=== PATIENT | female | born 1950 | race African-American/Black ===

== ENCOUNTER → 2016-07-28 | Outpatient (CLI) | payer OTHER ==
[2016-07-28 14:40] LABS: Basophils # (auto) 0 uL; Basophils % (auto) 0.5 % (0.0-2.0); Eosinophils # (auto) 0 uL; Eosinophils % (auto) 0.7 % (0.0-7.0); Hematocrit 45.8 % (36.0-46.0); Hemoglobin 14.7 g/dL (12.2-16.2); Lymphocytes # (auto) 1.3 uL; Lymphocytes % (auto) 51.2 % (10.0-50.0); Mean Corpuscular Hemoglobin 29.4 pg (28.0-32.0); Mean Corpuscular Hgb Conc. 32.1 g/dL (32.0-36.0); Mean Corpuscular Volume 91.8 fL (80.0-100.0); Mean Platelet Volume 9.3 fL (7.4-10.4); Monocytes # (auto) 0.2 uL; Monocytes % (auto) 6.2 % (0.0-12.0); Neutrophils # (auto) 1.1 uL; Neutrophils % (auto) 41.4 % (37.0-80.0); Platelet Count (auto) 224 10^3/uL (140-450); Red Cell Distribution Width 16.4 % (11.6-16.0); White Blood Cell 2.6 10^3/uL (4.4-10.8)
[2016-07-28 14:47] LABS: Urine Bilirubin Negative (Negative); Urine Blood Negative /uL (Negative); Urine Color Yellow (Yellow); Urine Glucose Normal (Normal); Urine Ketone Negative (Negative); Urine Nitrite Negative (Negative); Urine Urobilinogen Normal (Negative); Urine pH 6.5 (5.0-8.0)
[2016-07-28 14:56] LABS: Albumin 3.4 g/dL (3.4-5.0); BUN/Creatinine Ratio 11.9; Bilirubin, Direct 0.2 mg/dL (0-0.2); Bilirubin, Total 0.4 mg/dL (0.2-1.0); Calcium 10.6 mg/dL (8.5-10.1); Potassium 4.7 mmol/L (3.5-5.1); Total Protein 7.5 g/dL (6.4-8.2)
== END | disposition home or self-care (01) ==
LOC: LAB 08:40
PROVIDERS: ATTEND Internal Medicine Cardiovascular Disease
DX: I10 Essential (primary) hypertension (principal); E78.00 Pure hypercholesterolemia, unspecified; K74.1 Hepatic sclerosis; E11.9 Type 2 diabetes mellitus without complications; E03.9 Hypothyroidism, unspecified; D64.9 Anemia, unspecified; E55.9 Vitamin D deficiency, unspecified; N39.0 Urinary tract infection, site not specified
CPT/HCPCS: 36415; 80048; 80061; 80076; 81003; 82306; 83036; 84443; 85025

== ENCOUNTER → 2016-10-31 | Outpatient (CLI) | payer MEDICARE, OTHER ==
[~2016-10-31] VITALS: Ht 61 cm; Wt 112.5 kg
[~2016-10-31] MED LIST: IOHEXOL 350 MG/ML 100ML IJ ONE; diphenhdrAMINE HCL 50 MG/1 ML VL IV ONE; diphenhdrAMINE HCL 50 MG/1 ML VL ONE; methylPREDNISolone SOD SUCC 125 MG/2 ML VL IV ONE; methylPREDNISolone SOD SUCC 40 MG/ML VL ONE
[2016-10-31 11:00] VITALS: BP 135/84
[2016-10-31 12:00] VITALS: BP 126/79
== END | disposition home or self-care (01) ==
LOC: Rad HDHVI 10:47
PROVIDERS: ATTEND Internal Medicine Cardiovascular Disease
DX: G45.9 Transient cerebral ischemic attack, unspecified (principal); K76.89 Other specified diseases of liver; N28.1 Cyst of kidney, acquired
CPT/HCPCS: 70460; 70491; 71260; 96374; 96375; G0463; J1200; J2920; Q9967

== ENCOUNTER → 2017-01-28 | Outpatient (CLI) | payer MEDICARE, OTHER ==
[2017-01-28 12:34] LABS: Basophils # (auto) 0 uL; Basophils % (auto) 0.3 % (0.0-2.0); CONDITION Y; Eosinophils # (auto) 0 uL; Eosinophils % (auto) 0.8 % (0.0-7.0); Hematocrit 42.3 % (36.0-46.0); Lymphocytes # (auto) 1.5 uL; Mean Corpuscular Hemoglobin 32.2 pg (28.0-32.0); Mean Corpuscular Volume 97.4 fL (80.0-100.0); Mean Platelet Volume 9.4 fL (7.4-10.4); Monocytes # (auto) 0.3 uL; Neutrophils # (auto) 2.1 uL; Neutrophils % (auto) 53.9 % (37.0-80.0); Platelet Count (auto) 208 10^3/uL (140-450); Red Cell Distribution Width 14.5 % (11.6-16.0); White Blood Cell 3.9 10^3/uL (4.4-10.8)
== END | disposition home or self-care (01) ==
LOC: LAB 09:01
PROVIDERS: ATTEND Internal Medicine Cardiovascular Disease
DX: D64.9 Anemia, unspecified (principal)
CPT/HCPCS: 36415; 85025

== ENCOUNTER → 2017-12-09 | Outpatient (CLI) | payer MEDICARE, OTHER ==
[2017-12-09 12:10] LABS: Basophils # (auto) 0 uL; Basophils % (auto) 0.3 % (0.0-2.0); Eosinophils # (auto) 0 uL; Eosinophils % (auto) 0.5 % (0.0-7.0); Hematocrit 40.7 % (36.0-46.0); Hemoglobin 13.6 g/dL (12.2-16.2); Lymphocytes # (auto) 1.6 uL; Lymphocytes % (auto) 39.4 % (10.0-50.0); Mean Corpuscular Hemoglobin 31.7 pg (28.0-32.0); Mean Corpuscular Hgb Conc. 33.3 g/dL (32.0-36.0); Mean Corpuscular Volume 95.4 fL (80.0-100.0); Monocytes # (auto) 0.3 uL; Monocytes % (auto) 6.5 % (0.0-12.0); Neutrophils # (auto) 2.1 uL; Neutrophils % (auto) 53.3 % (37.0-80.0); Nucleated Red Blood Cells % 0.1 %; Platelet Count (auto) 165 10^3/uL (140-450); Red Blood Cells 4.27 10^6/uL (4.0-5.20); Red Cell Distribution Width 14.4 % (11.8-14.3)
[2017-12-09 12:39] LABS: Alanine Aminotransferase 21 U/L (13-56); Albumin 3.2 g/dL (3.4-5.0); Alkaline Phosphatase 95 U/L (45-117); Anion Gap 4 (5-15); Aspartate Aminotransferase 16 U/L (15-37); Bilirubin, Direct < 0.1 mg/dL (0-0.2); Bilirubin, Total 0.2 mg/dL (0.2-1.0); Blood Urea Nitrogen 11 mg/dL (7-18); Calcium 9.9 mg/dL (8.5-10.1); Carbon Dioxide 29 mmol/L (21-32); Chloride 108 mmol/L (98-107); Cholesterol 157 mg/dL (< 200); GFR African American 79 mL/min; GFR Non-African American 65 mL/min; Glucose 89 mg/dL (74-106); HDL Cholesterol 61 mg/dL (40-59); LDL Cholesterol 90 mg/dL (< 100); Potassium 4.9 mmol/L (3.5-5.1); Sodium 141 mmol/L (136-145); Total Protein 7.3 g/dL (6.4-8.2); Triglycerides 122 mg/dL (< 150)
== END | disposition home or self-care (01) ==
LOC: LAB 10:27
PROVIDERS: ATTEND Internal Medicine Cardiovascular Disease
DX: Z00.01 Encounter for general adult medical examination with abnormal findings (principal); E03.9 Hypothyroidism, unspecified; E55.9 Vitamin D deficiency, unspecified; E11.9 Type 2 diabetes mellitus without complications; I10 Essential (primary) hypertension
CPT/HCPCS: 36415; 80048; 80061; 80076; 82306; 83036; 84443; 85025

== ENCOUNTER → 2019-09-05 | Outpatient (CLI) | payer MEDICARE, OTHER ==
[2019-09-05 12:51] LABS: Urine Blood Negative /uL (Negative); Urine Specific Gravity 1.015 (1.001-1.035)
== END | disposition home or self-care (01) ==
LOC: LAB 09:25
PROVIDERS: ATTEND Internal Medicine Cardiovascular Disease
DX: N39.0 Urinary tract infection, site not specified (principal)
CPT/HCPCS: 81003; 87086

== ENCOUNTER → 2020-05-16 | Outpatient (CLI) | payer MEDICARE, OTHER | END | disposition home or self-care (01) | LOC: Rad HDHVI 12:57 | PROVIDERS: ATTEND Internal Medicine Cardiovascular Disease | DX: I10 Essential (primary) hypertension (principal); R06.02 Shortness of breath; E66.9 Obesity, unspecified; E78.5 Hyperlipidemia, unspecified; Z82.49 Family history of ischemic heart disease and other diseases of the circulatory system | CPT/HCPCS: 78452; 93017; 96374; A9500 ==

== ENCOUNTER → 2020-05-21 | Outpatient (CLI) | payer MEDICARE, OTHER | END | disposition home or self-care (01) | LOC: Rad HDHVI 12:58 | PROVIDERS: ATTEND Internal Medicine Cardiovascular Disease | DX: I47.1 Supraventricular tachycardia (principal); R00.2 Palpitations | CPT/HCPCS: 93306 ==

== ENCOUNTER → 2021-01-16 | Outpatient (CLI) | payer MEDICARE, OTHER ==
[2021-01-16 12:09] LABS: Basophils # (auto) 0 10 ^3/uL (0-0.2); Basophils % (auto) 0.8 % (0.0-2.0); Eosinophils # (auto) 0.1 10 ^3/uL (0-0.8); Eosinophils % (auto) 1.8 % (0.0-7.0); Hematocrit 40.8 % (36.0-46.0); Hemoglobin 14.1 g/dL (12.2-16.2); Lymphocytes # (auto) 1.3 10 ^3/uL (0.4-5.4); Lymphocytes % (auto) 34.2 % (10.0-50.0); Mean Corpuscular Hemoglobin 31.3 pg (28.0-32.0); Mean Corpuscular Hgb Conc. 34.4 g/dL (32.0-36.0); Monocytes # (auto) 0.5 10 ^3/uL (0-1.3); Monocytes % (auto) 12.3 % (0.0-12.0); Neutrophils % (auto) 50.9 % (37.0-80.0); Platelet Count (auto) 176 10^3/uL (140-450); Red Blood Cells 4.49 10^6/uL (4.0-5.20); Red Cell Distribution Width 14.4 % (11.8-14.3); White Blood Cell 3.9 10^3/uL (4.4-10.8)
[2021-01-16 12:11] LABS: Urine Blood Negative /uL (Negative); Urine Specific Gravity 1.014 (1.001-1.035)
[2021-01-16 12:15] LABS: Albumin 3.2 g/dL (3.4-5.0); Calcium 9.7 mg/dL (8.5-10.1); Potassium 4.6 mmol/L (3.5-5.1)
[2021-01-16 12:21] LABS: BUN/Creatinine Ratio 11.2; Bilirubin, Total 0.4 mg/dL (0.2-1.0); Total Protein 7.2 g/dL (6.4-8.2)
[2021-01-16 12:27] LABS: Free T4 (Free Thyroxine) 1.05 ng/dL (0.89-1.76)
== END | disposition home or self-care (01) ==
LOC: LAB 11:01
PROVIDERS: ATTEND Internal Medicine Cardiovascular Disease
DX: D51.3 Other dietary vitamin B12 deficiency anemia (principal); I10 Essential (primary) hypertension; E11.9 Type 2 diabetes mellitus without complications; E55.9 Vitamin D deficiency, unspecified; D64.9 Anemia, unspecified; R00.2 Palpitations; R53.1 Weakness; R30.0 Dysuria
CPT/HCPCS: 36415; 80053; 80061; 81003; 82306; 82607; 83036; 84439; 84443; 85025; 85049

== ENCOUNTER → 2021-06-18 | Outpatient (CLI) | payer MEDICARE, OTHER | END | disposition home or self-care (01) | LOC: Rad HDHVI 09:57 | PROVIDERS: ATTEND Internal Medicine Cardiovascular Disease | DX: I35.0 Nonrheumatic aortic (valve) stenosis (principal); I05.0 Rheumatic mitral stenosis | CPT/HCPCS: 93306 ==

== ENCOUNTER → 2021-06-25 | Outpatient (CLI) | payer MEDICARE, OTHER ==
[~2021-06-25] VITALS: Ht 160 cm; Wt 112.9 kg
== END | disposition home or self-care (01) ==
LOC: Rad HDHVI 09:21
PROVIDERS: ATTEND Internal Medicine Cardiovascular Disease
DX: I10 Essential (primary) hypertension (principal); E78.5 Hyperlipidemia, unspecified; G47.30 Sleep apnea, unspecified; Z82.49 Family history of ischemic heart disease and other diseases of the circulatory system; E11.9 Type 2 diabetes mellitus without complications
CPT/HCPCS: 78452; 93017; 96374; A9500

== ENCOUNTER → 2021-08-30 | Day surgery (SDC) | payer MEDICARE, OTHER ==
[2021-08-28 07:41] LABS: Basophils # (auto) 0 10 ^3/uL (0-0.2); Basophils % (auto) 0.7 % (0.0-2.0); Eosinophils # (auto) 0.1 10 ^3/uL (0-0.8); Eosinophils % (auto) 2.1 % (0.0-7.0); Hematocrit 40.7 % (36.0-46.0); Hemoglobin 13.1 g/dL (12.2-16.2); Lymphocytes # (auto) 1.4 10 ^3/uL (0.4-5.4); Lymphocytes % (auto) 37.5 % (10.0-50.0); Mean Corpuscular Hemoglobin 29.2 pg (28.0-32.0); Mean Corpuscular Hgb Conc. 32.1 g/dL (32.0-36.0); Mean Corpuscular Volume 90.9 fL (80.0-100.0); Monocytes # (auto) 0.4 10 ^3/uL (0-1.3); Monocytes % (auto) 9.7 % (0.0-12.0); Neutrophils # (auto) 1.8 10 ^3/uL (1.6-8.6); Nucleated Red Blood Cells % 0.1 %; Red Blood Cells 4.47 10^6/uL (4.0-5.20); Red Cell Distribution Width 14.2 % (11.8-14.3); White Blood Cell 3.7 10^3/uL (4.4-10.8)
[2021-08-28 07:58] LABS: INR 0.94 (0.9-1.15); Partial Thromboplastin Time 30.8 sec (23.6-33.0)
[2021-08-28 07:59] LABS: Calcium 9.8 mg/dL (8.5-10.1); Potassium 4.2 mmol/L (3.5-5.1)
[2021-08-28 08:06] LABS: Albumin 3.2 g/dL (3.4-5.0); BUN/Creatinine Ratio 11.1; Bilirubin, Total 0.5 mg/dL (0.2-1.0)
[~2021-08-30] VITALS: Ht 160 cm; Wt 111.6 kg
[~2021-08-30] MED LIST changes: +HYDR-4902 PO; +HYDROmorphone HCL 2 MG/ML VL IV PRN; -IOHEXOL 350 MG/ML 100ML IJ ONE; +LACTATED RINGER'S 1,000 ML IV SCH; +LEFL20TA PO; +LISI2.5T47 PO; +MERC50TA PO; +METOCLOPRAMIDE HCL 5MG/ml INJ 2ml VIAL IV PRN; +MIDAZOLAM HCL 2MG/2ML 2ml VIAL (1mg/ml) ONE; +MORPHINE SULFATE 4 MG/ML SYR/VIAL IV PRN; +ONDA-144 PO; +ONDANSETRON HCL 4 MG/2 ML VIAL IV PRN; +ONDANSETRON HCL 4 MG/2 ML VIAL ONE; +PROPOFOL 10 MG/ML 20 ML IV ONE; +SODIUM CHLORIDE LOCK 10 ML ONE; +ceFAZolin 1GM/50ML 50 ML IV ONE; -diphenhdrAMINE HCL 50 MG/1 ML VL IV ONE; -diphenhdrAMINE HCL 50 MG/1 ML VL ONE; +fentaNYL CITRATE 100 MCG/2 ML VL ONE; -methylPREDNISolone SOD SUCC 125 MG/2 ML VL IV ONE; -methylPREDNISolone SOD SUCC 40 MG/ML VL ONE
[2021-08-30 10:05] VITALS: BP 134/88
== END | disposition home or self-care (01) ==
LOC: SUR 06:54
PROVIDERS: ATTEND Obstetrics & Gynecology
DX: N85.00 Endometrial hyperplasia, unspecified (principal); M19.90 Unspecified osteoarthritis, unspecified site; I10 Essential (primary) hypertension; G89.29 Other chronic pain; E66.01 Morbid (severe) obesity due to excess calories; G47.33 Obstructive sleep apnea (adult) (pediatric); M06.9 Rheumatoid arthritis, unspecified; Z98.890 Other specified postprocedural states; Z98.51 Tubal ligation status; Z87.891 Personal history of nicotine dependence; Z79.899 Other long term (current) drug therapy; Z82.49 Family history of ischemic heart disease and other diseases of the circulatory system; Z20.822 Contact with and (suspected) exposure to COVID-19; Z68.41 Body mass index [BMI] 40.0-44.9, adult
CPT/HCPCS: 36415; 58558; 80053; 81025; 84702; 85025; 85610; 85730; 86850; 86900; 86901; 87086; J0690; J2250; J2405; J2704; J3010; U0003

== ENCOUNTER → 2021-12-04 | Outpatient (CLI) | payer MEDICARE, OTHER ==
[~2021-12-04] MED LIST changes: -HYDROmorphone HCL 2 MG/ML VL IV PRN; -LACTATED RINGER'S 1,000 ML IV SCH; -METOCLOPRAMIDE HCL 5MG/ml INJ 2ml VIAL IV PRN; -MIDAZOLAM HCL 2MG/2ML 2ml VIAL (1mg/ml) ONE; -MORPHINE SULFATE 4 MG/ML SYR/VIAL IV PRN; -ONDANSETRON HCL 4 MG/2 ML VIAL IV PRN; -ONDANSETRON HCL 4 MG/2 ML VIAL ONE; -PROPOFOL 10 MG/ML 20 ML IV ONE; -SODIUM CHLORIDE LOCK 10 ML ONE; -ceFAZolin 1GM/50ML 50 ML IV ONE; -fentaNYL CITRATE 100 MCG/2 ML VL ONE
[2021-12-04 11:53] LABS: Basophils # (auto) 0 10 ^3/uL (0-0.2); Basophils % (auto) 0.8 % (0.0-2.0); Eosinophils # (auto) 0.1 10 ^3/uL (0-0.8); Hematocrit 40.1 % (36.0-46.0); Hemoglobin 13.1 g/dL (12.2-16.2); Lymphocytes # (auto) 1.1 10 ^3/uL (0.4-5.4); Lymphocytes % (auto) 31.5 % (10.0-50.0); Mean Corpuscular Hemoglobin 29.2 pg (28.0-32.0); Mean Corpuscular Hgb Conc. 32.6 g/dL (32.0-36.0); Mean Corpuscular Volume 89.6 fL (80.0-100.0); Monocytes # (auto) 0.3 10 ^3/uL (0-1.3); Monocytes % (auto) 9.9 % (0.0-12.0); Neutrophils # (auto) 1.9 10 ^3/uL (1.6-8.6); Neutrophils % (auto) 55.8 % (37.0-80.0); Nucleated Red Blood Cells % 0.1 %; Red Blood Cells 4.48 10^6/uL (4.0-5.20); Red Cell Distribution Width 15.2 % (11.8-14.3); White Blood Cell 3.5 10^3/uL (4.4-10.8)
[2021-12-04 11:54] LABS: Free T4 (Free Thyroxine) 0.97 ng/dL (0.89-1.76)
[2021-12-04 12:11] LABS: Urine Blood Negative /uL (Negative); Urine Specific Gravity 1.016 (1.001-1.035)
[2021-12-04 12:39] LABS: Potassium 4.4 mmol/L (3.5-5.1)
[2021-12-04 12:51] LABS: Albumin 3.1 g/dL (3.4-5.0); BUN/Creatinine Ratio 12.8; Bilirubin, Total 0.5 mg/dL (0.2-1.0); Calcium 9.7 mg/dL (8.5-10.1); Total Protein 7.1 g/dL (6.4-8.2)
== END | disposition home or self-care (01) ==
LOC: LAB 07:53
PROVIDERS: ATTEND Internal Medicine Cardiovascular Disease
DX: D51.3 Other dietary vitamin B12 deficiency anemia (principal); D64.9 Anemia, unspecified; E11.9 Type 2 diabetes mellitus without complications; E55.9 Vitamin D deficiency, unspecified; I10 Essential (primary) hypertension; R00.2 Palpitations; R53.1 Weakness; R30.0 Dysuria
CPT/HCPCS: 36415; 80053; 80061; 81003; 82306; 82607; 83036; 84439; 84443; 85025; 87086; 87088; 87186

== ENCOUNTER → 2022-11-11 | Outpatient (CLI) | payer MEDICARE, OTHER | END | disposition home or self-care (01) | LOC: Rad HDHVI 08:50 | PROVIDERS: ATTEND Internal Medicine Cardiovascular Disease | DX: I34.0 Nonrheumatic mitral (valve) insufficiency (principal); R07.89 Other chest pain; I10 Essential (primary) hypertension | CPT/HCPCS: 93306 ==

== ENCOUNTER → 2022-11-19 | Outpatient (CLI) | payer MEDICARE, OTHER | END | disposition home or self-care (01) | LOC: Rad HDHVI 08:04 | PROVIDERS: ATTEND Internal Medicine Cardiovascular Disease | DX: R60.9 Edema, unspecified (principal) | CPT/HCPCS: 93926 ==

== ENCOUNTER → 2022-12-01 | Outpatient (CLI) | payer MEDICARE, OTHER ==
[~2022-12-01] VITALS: Ht 160 cm; Wt 102.1 kg
== END | disposition home or self-care (01) ==
LOC: Rad HDHVI 09:08
PROVIDERS: ATTEND Internal Medicine Cardiovascular Disease
DX: R06.02 Shortness of breath (principal); I10 Essential (primary) hypertension; E78.5 Hyperlipidemia, unspecified; Z82.49 Family history of ischemic heart disease and other diseases of the circulatory system
CPT/HCPCS: 78452; 93017; 96374; A9500

== ENCOUNTER 2024-09-09 07:59 | Emergency (ER) | payer MEDICARE, OTHER ==
[~2024-09-09] VITALS: Ht 160 cm; Wt 104.4 kg
[2024-09-09 08:23] VITALS: BP 169/97; PULSE 110; RESP 18; TEMP 98.3; O2SAT 98
--- NOTE | 2024-09-09 08:36 | ED.PDOC ---
Back pain HPI HPI Comments A 73 YEAR OLD FEMALE PRESENTS TO THE ED WITH COMPLAINT OF LOWER BACK PAIN AND LEFT HIP PAIN. PATIENT STATES SHE HAS A HISTORY OF CHRONIC LOWER BACK PAIN AND HAS BEEN EXPERIENCING OCCASIONAL LOWER BACK PAIN WITH LEFT HIP PAIN THAT RADIATES DOWN TO HER LEFT CALF OFF AND ON FOR THE PAST 2 WEEKS WITH WORSENING SYMPTOMS OVER THE LAST 1 WEEK. PATIENT DENIES SADDLE ANESTHESIA, URINARY INCONTINENCE, BOWEL INCONTINENCE, FEVER, CHILLS, SHORTNESS OF BREATH, CHEST PAIN, ABDOMINAL PAIN, NAUSEA, VOMITING, HEADACHE, OR OTHER COMPLAINTS. NO OTHER SYMPTOMS OR MODIFYING FACTORS AT THIS TIME. PATIENT IS ALERT, ORIENTED X 4, AND HAS STEADY GAIT. Chief Complaint: Lower Extremity Time Seen by MD: 08:13 Reviewed Notes: Nurses Notes, Medications, Allergies Allergies: Coded Allergies: Iodine (Verified Allergy, Unknown, 05/16/20) Home Meds Active Scripts Tramadol Hcl (Tramadol Hcl) 50 Mg Tab, 50 MG PO BID, #20 TAB Prov:LORENA LEYVA 09/09/24 Prednisone (Prednisone) 20 Mg Tab, 40 MG PO DAILY, #20 TAB Prov:LORENA LEYVA 09/09/24 Ondansetron (Zofran) 4 Mg Tab, 4 MG PO Q4HPRN PRN, #30 TAB Prov:ROSALIND EMERSON DO 08/30/21 Hydrocodone-Acetaminophen (Hydrocodone Bitartrate/AC 5-325 mg) 1 Tab Tab, 1 TAB PO Q6HPRN PRN for 5 Days, #20 TAB Prov:ROSALIND EMERSON 08/30/21 Reported Medications Leflunomide (Arava) 20 Mg Tab, 20 MG PO, TAB 08/27/21 Lisinopril (Lisinopril) 2.5 Mg Tab, 2.5 MG PO, TAB 08/27/21 Mercaptopurine (Mercaptopurine) 50 Mg Tab, 50 MG PO, TAB 08/27/21 Information Source: Patient Mode of Arrival: Ambulatory Timing: Weeks Duration: Intermittent Location of Back pain: (B) Lumbar Radiates to: Anterior: (L) Buttocks (\), (L) Calf, (L) Thigh Radiates to: Posterior: (L) Buttocks, (L) Calf, (L) Thigh Radiates to: Medial: (L) Buttocks, (L) Calf, (L) Thigh Radiates to: Lateral: (L) Buttocks, (L) Calf, (L) Thigh Severity: Moderate Quality: Aching, Burning, Cramping Onset: Spontaneous History of: Chronic Back Pain Modifying Factors: Movement Associated signs and symptoms: None Past Medical History PAST MEDICAL HISTORY: Arthritis, HTN Past Medical History (Other): DDD OF LOW BACK Surgical History: Denies all surgeries 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 Family History Family History: Reviewed,noncontributory to illness Social History Smoker: Non-Smoker Alcohol: Denies ETOH Use Drugs: Denies Drug Use Lives In: Home Constitutional: denies: chills, diaphoresis, fatigue, fever, malaise, sweats, weakness, others EENTM: denies: blurred vision, double vision, ear bleeding, ear discharge, ear drainage, ear pain, ear ringing, eye pain, eye redness, hearing loss, mouth pain, mouth swelling, nasal discharge, nose bleeding, nose congestion, nose pain, photophobia, tearing, throat pain, throat swelling, voice changes, others Respiratory: denies: cough, hemoptysis, orthopnea, SOB at rest, shortness of breath, SOB with excertion, stridor, wheezing, others Cardiovascular: denies: chest pain, dizzy spells, diaphoresis, Dyspnea on exertion, edema, irregular heart beat, left arm pain, lightheadedness, palpitations, PND, syncope, others Gastrointestinal: denies: abdomen distended, abdominal pain, blood streaked bowels, constipated, diarrhea, dysphagia, difficulty swallowing, hematemesis, melena, nausea, poor appetite, poor fluid intake, rectal bleeding, rectal pain, vomiting, others Genitourinary: denies: abnormal vagina bleeding, burning, dyspareunia, dysuria, flank pain, frequency, hematuria, incontinence, pain, , vagina discharge, urgency, others Neurological: denies: dizziness, fainting, headache, left sided numbness, left sided weakness, numbness, paresthesia, pre-existing deficit, right sided numbness, right sided weakness, seizure, speech problems, tingling, tremors, weakness, others Musculoskeletal: reports: back pain (LOWER BACK PAIN), joint pain, muscle pain, others (LEFT HIP PAIN); denies: gout, joint swelling, muscle stiffness, neck pain Integumetry: denies: bruises, change in color, change in hair/nails, dryness, laceration, lesions, lumps, rash, wounds, others Allergic/Immunocompromised: denies: Difficulty Healing, Frequent Infections, Hives, Itching, others Hematologic/Lymphatic: denies: anemia, blood clots, easy bleeding, easy bruising, swollen glands, others Endocrine: denies: excessive hunger, excessive sweating, excessive thirst, excessive urination, flushing, intolerance to cold, intolerance to heat, unexplained weight gain, unexplained weight loss, others Psychiatric: denies: anxiety, bipolar disorder, depression, hopeless, panic disorder, schizophrenia, sleepless, suicidal, others All Other Systems: Reviewed and Negative Physical Exam General Appearance: No Apparent Distress, Obese HEENT: Normal ENT Inspection, PERRL/EOMI, Pharynx Normal, TMs Normal Neck: Full Range of Motion, Non-Tender, Normal, Normal Inspection Respiratory: Chest Non-Tender, Lungs Clear, No Accessory Muscle Use, No Respiratory Distress, Normal Breath Sounds Cardiovascular: No Edema, No JVD, No Murmur, No Gallop, Normal Peripheral Pulses, Regular Rate/Rhythm Breast Exam: Deferred Gastrointestinal: No Organomegaly, Non Tender, No Pulsatile Mass, Normal Bowel Sounds, Soft Genitalia: Deferred Pelvic: Deferred Rectal: Deferred Extremities: No calf tenderness, Normal capillary refill, Normal range of motion, No pedal edema, Tender (LEFT LATERAL HIP, NO REDNESS, SWELLING AND DVT SIGNS OF LEFT LOWER EXTREMITY. ) Musculoskeletal : Location: Bilateral Extremity Location: Back Apperance: Tenderness (AND MUSCLE SPASM ON LOWER BACK, NO BONY TENDERNESS, SWELLING AND DEFORMITY. ) Neurologic: Alert, cigarette tester II-XII nml as Tested, No Motor Deficits, Normal Affect, Normal Mood, No Sensory Deficits Cerebellar Function: Normal Reflexes: Normal Skin: Dry, Normal Color, Warm Peripheral Pulses: 2+ carotid (R), 2+ carotid (L), 2+ dorsalis pedis (R), 2+ dorsalis pedis (L) Lymphatic: No Adenopathy Was a procedure done? Was a procedure done?: No Back Pain Differential Dx Differential Diagnosis: DJD, Musculoskeletal Pain, Strain Other Differential Diagnosis DDD, LUMBAR RADICULOPATHY X-Ray, Labs, Meds, VS Vital Signs Date Time Temp Pulse Resp B/P (MAP) Pulse Ox O2 Delivery O2 Flow Rate FiO2 2/21/25 08:23 98.3 110 18 169/97 (121) 98 98.3 09/09/24 08:23 110 18 98 Room Air 09/09/24 08:12 98.3 110 18 171/103 (125) 98 XY L HIP COMPLETE XRAY, INDICATION: PAIN, NO INJURY TECHNICAL DATA: Frontal and frog lateral views were obtained of the left hip.] COMPARISON: None FINDINGS: The left hip is normally located. The left hip joint is normally maintained with no marginal osteophytes. No left hip fracture is identified. The left sacroiliac joint appears normal. IMPRESSION: No fracture of the left hip. ATED BY: SERGIO YING MD DICTATED DATE/TIME: 09/09/24853 SIGNED BY: SERGIO YING MD SIGNED DATE/TIME: 09/09/24853 CC: XY LUMBAR SPINE 3 VIEW, HISTORY: PAIN, NO INJURY COMPARISON: None TECHNICAL DATA: Frontal and lateral views were obtained of the lumbar spine . FINDINGS: There are 5 lumbar type vertebral bodies. Lumbar curvature is within normal limits. Mild to moderate anterolisthesis of L4-5. Vertebral body heights are maintained. Disk heights are narrow and degenerative. The facet joints appear degenerative. The sacroiliac joints are symmetric. Paraspinal soft tissues are within normal limits. IMPRESSION: Mild to moderate anterolisthesis of L3-4, L4-5. No acute fracture or dislocation of the lumbar spine. ATED BY: SERGIO YING MD DICTATED DATE/TIME: 09/09/24852 SIGNED BY: SERGIO YING MD SIGNED DATE/TIME: 09/09/24852 CC: X-Ray, Labs, Meds, VS Comment EXTERNAL MEDICAL RECORDS REVIEWED: [NONE] INDEPENDENT HISTORIANS: [NONE] SOCIAL DETERMINANTS OF HEALTH: [NONE] LABS ORDERED: NONE REVIEWED AND INTERPRETED RESULTS: NONE IMAGING ORDERED: XR L-SPINE, XR HIP LT TREATMENTS ORDERED: NONE PROCEDURES PERFORMED: NONE CRITICAL CARE TIME: NONE I HAVE DISCUSSED THE PATIENT WITH THE ATTENDING PHYSICIAN DR. ALARCON AND HE AGREES WITH THE PATIENT'S PLAN OF CARE AND DISPOSITION. BASED ON HISTORY OF PRESENT ILLNESS, AND PHYSICAL EXAM, PATIENT WILL BE DISCHARGED HOME. SHARED DECISION MAKING: PATIENT INSTRUCTED TO FOLLOW UP WITH PRIMARY CARE PROVIDER IN 1-2 DAYS FOR RE-EVALUATION OF SYMPTOMS. PATIENT VERBALIZES UNDERSTANDING TO RETURN TO ED FOR NEW OR WORSENING SYMPTOMS OR IF FOLLOW UP WITH PCP CANNOT BE OBTAINED. PATIENT FEELS COMFORTABLE GOING HOME AT THIS TIME. ALL QUESTIONS ADDRESSED AT TIME OF DISCHARGE. Images Reviewed?: Images reviewed and evaluated by me Time of 1ST Reevaluation: 09:18 Reevaluation 1ST: Improved Patient Education/Counseling: Diagnosis, Treatment, Need For Follow Up Family Education/Counseling: Diagnosis, Treatment, Need For Follow Up Medical Screening: No EMC Exist At This Time Departure 1 Departure Time of Disposition: :18 Impression: Primary Impression: DDD (degenerative disc disease), lumbar Qualified Codes: M51.362 - Other intervertebral disc degeneration, lumbar region with discogenic back pain and lower extremity pain Additional Impression: Lumbar radiculopathy Disposition: HOME / SELF CARE / HOMELESS Condition: Stable Additional Instructions: FOLLOW-UP WITH PCP IN 1 TO 2 DAYS. TAKE MEDICATIONS PRESCRIBED. RETURN TO ED FOR ANY NEW OR WORSENING SYMPTOMS. e-Prescriptions Tramadol Hcl (Tramadol Hcl) 50 Mg Tab 50 MG PO BID, #20 TAB Prov: LORENA LEYVA 09/09/24 Prednisone (Prednisone) 20 Mg Tab 40 MG PO DAILY, #20 TAB Prov: LORENA LEYVA 09/09/24 Discharged With: Self Critical Care Note Critical Care Time?: No Stability Stability form required: No I personally scribed for LORENA LEYVA ([email or web address]) on 09/09/24 at 08:36. Elec tronically submitted by Enrico Plata ([email or web address]). I personally scribed for LORENA LEYVA ([email or web address]) on 09/09/24 at 09:01. Elect ronically submitted by Enrico Plata ([email or web address]). I personally scribed for LORENA LEYVA ([email or web address]) on 09/09/24 at 09:02. Electr onically submitted by Enrico Plata ([email or web address]). LORENA LEYVA Sep 09, 2024 08:36
--- NOTE | 2024-09-09 08:56 | DVH ---
XY L HIP COMPLETE XRAY, INDICATION: PAIN, NO INJURY TECHNICAL DATA: Frontal and frog lateral views were obtained of the left hip.] COMPARISON: None FINDINGS: The left hip is normally located. The left hip joint is normally maintained with no marginal osteophy henrry. No left hip fracture is identified. The left sacroiliac joint appears normal. IMPRESSION: No fracture of the left hip.
--- NOTE | 2024-09-09 08:56 | DVH ---
XY LUMBAR SPINE 3 VIEW, HISTORY: PAIN, NO INJURY COMPARISON: None TECHNICAL DATA: Frontal and lateral views were obtained of the lumbar spine . FINDINGS: There are 5 lumbar type vertebral bodies. Lumbar curvature is within normal limits. Mild to moderate anterolisthesis of L4-5. Vertebral body heights are maintained. Disk heights are narrow and degenerat steven. The facet joints appear degenerative. The sacroiliac joints are symmetric. Paraspinal soft tissu es are within normal limits. IMPRESSION: Mild to moderate anterolisthesis of L3-4, L4-5. No acute fracture or dislocation of the lumbar spine.
[2024-09-09] MEDS ORDERED: PRED20TA2 PO (09:15)
[2024-09-09] MEDS ORDERED: TRAM50TA2 PO (09:15)
== END 2024-09-09 09:21 | disposition home or self-care (01) ==
LOC: ER 07:59
DX: M51.369 Other intervertebral disc degeneration, lumbar region without mention of lumbar back pain or lower extremity pain (principal); M54.16 Radiculopathy, lumbar region; I10 Essential (primary) hypertension; Z79.52 Long term (current) use of systemic steroids; Z88.8 Allergy status to other drugs, medicaments and biological substances; Z79.899 Other long term (current) drug therapy
CPT/HCPCS: 72100; 73502

== ENCOUNTER 2024-10-15 08:39 | Emergency (ER) | payer MEDICARE, OTHER ==
[~2024-10-15] VITALS: Ht 160 cm; Wt 90.9 kg
[~2024-10-15 08:39] MED LIST changes: +PRED20TA2 PO; +TRAM50TA2 PO
[2024-10-15 08:54] VITALS: BP 159/95; PULSE 90; RESP 20; TEMP 98.3; O2SAT 97
--- NOTE | 2024-10-15 09:09 | ED.PDOC ---
History of Present Illness HPI Comments A 73 YEAR OLD FEMALE BROUGHT IN BY AMBULANCE PRESENTS TO THE ED WITH COMPLAINT OF CHRONIC LOWER BACK PAIN THAT RADIATES TO LEFT HIP AND PAIN MANAGEMENT. PATIENT STATES SHE HAS A HISTORY OF CHRONIC LOWER BACK PAIN THAT RADIATES TO HER LEFT HIP AND HAS BEEN EXPERIENCING WORSE PAIN OFF AND ON FOR THE PAST 1 MONTH. PATIENT WAS HERE IN THIS ED 1 MONTH AGO FOR THE SAME COMPLAINT WHERE AN X-RAY OF HER LEFT HIP AND L-SPINE WAS DONE WHICH REVEALED DEGENERATIVE DISC DISEASE. PATIENT NOTES SHE FOLLOWED UP WITH HER PRIMARY CARE PHYSICIAN WHERE AN MRI WAS DONE 1 WEEK AGO WHICH REVEALED DEGENERATIVE DISC DISEASE. PATIENT IS REQUESTING PAIN MANAGEMENT HERE IN THE ED. PATIENT DENIES SADDLE ANESTHESIA, URINARY INCONTINENCE, BOWEL INCONTINENCE, FEVER, CHILLS, SHORTNESS OF BREATH, CHEST PAIN, ABDOMINAL PAIN, NAUSEA, VOMITING, HEADACHE, OR OTHER COMPLAINTS. NO OTHER SYMPTOMS OR MODIFYING FACTORS AT THIS TIME. PATIENT IS ALERT, ORIENTED X 4, AND HAS STEADY GAIT. Chief Complaint: Back Pain Time Seen by MD: 08:47 Reviewed Notes: Nurses Notes, House Director Notes, Medications, Allergies Allergies: Coded Allergies: Iodine (Verified Allergy, Unknown, 05/16/20) Home Meds Active Scripts Tramadol Hcl (Tramadol Hcl) 50 Mg Tab, 50 MG PO BID, #20 TAB Prov:LORENA LEYVA 10/15/24 Prednisone (Prednisone) 20 Mg Tab, 40 MG PO DAILY, #20 TAB Prov:LORENA LEYVA 10/15/24 Ondansetron (Zofran) 4 Mg Tab, 4 MG PO Q4HPRN PRN, #30 TAB Prov:ROSALIND EMERSON DO 08/30/21 Hydrocodone-Acetaminophen (Hydrocodone Bitartrate/AC 5-325 mg) 1 Tab Tab, 1 TAB PO Q6HPRN PRN for 5 Days, #20 TAB Prov:ROSALIND EMERSON DO 08/30/21 Reported Medications Leflunomide (Arava) 20 Mg Tab, 20 MG PO, TAB 08/27/21 Lisinopril (Lisinopril) 2.5 Mg Tab, 2.5 MG PO, TAB 08/27/21 Mercaptopurine (Mercaptopurine) 50 Mg Tab, 50 MG PO, TAB 08/27/21 Information Source: Patient, Emergency Med Personnel, Spouse Mode of Arrival: EMS Severity: Moderate Timing: Days Duration: Since onset, Days Prehospital treatment: None Medication Refill: For: Pain (LOW BACK TO LEFT HIP ), For: Other (CHRONIC LOWER BACK PAIN THAT RADIATES TO LEFT HIP) Past Medical History PAST MEDICAL HISTORY: Arthritis, HTN Past Medical History (Other): DDD/CHRONIC LOWER BACK PAIN Surgical History: Denies all surgeries 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 HOT DIP 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 History Family History Family History: Reviewed,noncontributory to illness Social History Smoker: Non-Smoker Alcohol: Denies ETOH Use Drugs: Denies Drug Use Lives In: Home Constitutional: denies: chills, diaphoresis, fatigue, fever, malaise, sweats, weakness, others EENTM: denies: blurred vision, double vision, ear bleeding, ear discharge, ear drainage, ear pain, ear ringing, eye pain, eye redness, hearing loss, mouth pain, mouth swelling, nasal discharge, nose bleeding, nose congestion, nose pain, photophobia, tearing, throat pain, throat swelling, voice changes, others Respiratory: denies: cough, hemoptysis, orthopnea, SOB at rest, shortness of breath, SOB with excertion, stridor, wheezing, others Cardiovascular: denies: chest pain, dizzy spells, diaphoresis, Dyspnea on exertion, edema, irregular heart beat, left arm pain, lightheadedness, palpitations, PND, syncope, others Gastrointestinal: denies: abdomen distended, abdominal pain, blood streaked bowels, constipated, diarrhea, dysphagia, difficulty swallowing, hematemesis, melena, nausea, poor appetite, poor fluid intake, rectal bleeding, rectal pain, vomiting, others Genitourinary: denies: abnormal vagina bleeding, burning, dyspareunia, dysuria, flank pain, frequency, hematuria, incontinence, pain, , vagina discharge, urgency, others Neurological: denies: dizziness, fainting, headache, left sided numbness, left sided weakness, numbness, paresthesia, pre-existing deficit, right sided numbness, right sided weakness, seizure, speech problems, tingling, tremors, weakness, others Musculoskeletal: reports: back pain (LOWER BACK PAIN THAT RADIATES TO LEFT HIP), muscle pain; denies: gout, joint pain, joint swelling, muscle stiffness, neck pain, others Integumetry: denies: bruises, change in color, change in hair/nails, dryness, laceration, lesions, lumps, rash, wounds, others Allergic/Immunocompromised: denies: Difficulty Healing, Frequent Infections, Hives, Itching, others Hematologic/Lymphatic: denies: anemia, blood clots, easy bleeding, easy bruising, swollen glands, others Endocrine: denies: excessive hunger, excessive sweating, excessive thirst, excessive urination, flushing, intolerance to cold, intolerance to heat, unexplained weight gain, unexplained weight loss, others Psychiatric: denies: anxiety, bipolar disorder, depression, hopeless, panic disorder, schizophrenia, sleepless, suicidal, others All Other Systems: Reviewed and Negative Physical Exam General Appearance: No Apparent Distress, Normal, Obese HEENT: Normal ENT Inspection, PERRL/EOMI, Pharynx Normal, TMs Normal Neck: Full Range of Motion, Non-Tender, Normal, Normal Inspection Respiratory: Chest Non-Tender, Lungs Clear, No Accessory Muscle Use, No Respiratory Distress, Normal Breath Sounds Cardiovascular: No Edema, No JVD, No Murmur, No Gallop, Normal Peripheral Pulses, Regular Rate/Rhythm Breast Exam: Deferred Gastrointestinal: No Organomegaly, Non Tender, No Pulsatile Mass, Normal Bowel Sounds, Soft Genitalia: Deferred Pelvic: Deferred Rectal: Deferred Extremities: No calf tenderness, Normal capillary refill, Normal inspection, Normal range of motion, Non-tender, No pedal edema Musculoskeletal : Location: Bilateral Extremity Location: Back, Hip Apperance: Tenderness: Moderate (ON LOW BACK TO LEFT HIP/THIGH, NO BONY TENDERNESS, SWELLING AND DEFORMITY. ), Other (NO REDNESS, SWELLING AND DEFORMITY ON LEFT LOWER EXTREMITY, NO DVT SIGNS. ) Neurologic: Alert, gaming cage worker II-XII nml as Tested, No Motor Deficits, Normal Affect, Normal Mood, No Sensory Deficits Cerebellar Function: Normal Reflexes: Normal Skin: Dry, Normal Color, Warm Peripheral Pulses: 2+ carotid (R), 2+ carotid (L), 2+ dorsalis pedis (R), 2+ dorsalis pedis (L) Lymphatic: No Adenopathy Was a procedure done? Was a procedure done?: No Differential Dx Considerations may include: CHRONIC LOWER BACK PAIN, ACUTE PAIN EXACERBATION, PAIN MANAGEMENT X-Ray, Labs, Meds, VS Vital Signs Date Time Temp Pulse Resp B/P (MAP) Pulse Ox O2 Delivery O2 Flow Rate FiO2 10/15/24 08:54 98.3 90 20 159/95 (116) 97 98.3 10/15/24 08:54 90 20 97 Room Air 10/15/24 08:40 98.3 90 20 159/95 (116) 97 98.3 Current Medications Medications (Trade) Dose Ordered Sig/Mili Route Start Time Stop Time Status Last Admin Acetaminophen/ Hydrocodone Bitart ([place] 5/325MG Tab) 1 tab ONCE ONCE PO 10/15/24 09:15 10/15/24 09:16 DC 10/15/24 09:16 X-Ray, Labs, Meds, VS Comment EXTERNAL MEDICAL RECORDS REVIEWED: [NONE] INDEPENDENT HISTORIANS: [NONE] SOCIAL DETERMINANTS OF HEALTH: [NONE] LABS ORDERED: NONE REVIEWED AND INTERPRETED RESULTS: NONE IMAGING ORDERED: NONE TREATMENTS ORDERED: NORCO 5/325MG PO, SOLU-MEDROL 125 MG IV BASED ON THE PATIENT'S PERSISTENCE OF SYMPTOMS, THE PATIENT SOUGHT OUT ED CONSULT. BASED ON MY PHYSICAL EXAMINATION AND PATIENT'S HISTORY OF CHRONIC BACK PAIN, THERE IS NO NEW INJURY TO THE PATIENT'S BACK. THE PATIENT DENIES ANY NUMBNESS, WEAKNESS, TINGLING SENSATION, URINARY/BOWEL INCONTINENCE. THERE ARE NO SIGNS AND SYMPTOMS OF CAUDA EQUINA. THE PATIENT STATES THAT THE PAIN IS THE SAME WHEN THEY HAVE BACK PAIN FLARE-UP AND THAT THEY ONLY NEED PAIN MEDICATION IN THE ER. AT THIS POINT, THERE IS NO INDICATION FOR ANY IMAGING. THE PATIENT WAS ADVISED TO FOLLOW UP WITH ORTHO SPECIALIST FOR THEIR CHRONIC LOWER BACK PAIN AND PAIN MANAGEMENT DOCTOR FOR PAIN CONTROL. PATIENT WAS GIVEN NORCO 5/325MG PO AND SOLU-MEDROL 125MG IV FOR PAIN MEDICATION. OVERALL PATIENT'S VITAL SIGNS ARE STABLE AND THE PATIENT WILL BE DISCHARGED HOME. PROCEDURES PERFORMED: NONE CRITICAL CARE TIME: NONE I HAVE DISCUSSED THE PATIENT WITH THE ATTENDING PHYSICIAN DR. THOMAS AND HE AGREES WITH THE PATIENT'S PLAN OF CARE AND DISPOSITION. BASED ON HISTORY OF PRESENT ILLNESS, AND PHYSICAL EXAM, PATIENT WILL BE DISCHARGED HOME. THE PATIENT WILL BE SENT HOME WITH A PRESCRIPTION FOR ULTRAM AND PREDNISONE. SHARED DECISION MAKING: PATIENT INSTRUCTED TO FOLLOW UP WITH PRIMARY CARE PROVIDER IN 1-2 DAYS FOR RE-EVALUATION OF SYMPTOMS. PATIENT VERBALIZES UNDERSTANDING TO RETURN TO ED FOR NEW OR WORSENING SYMPTOMS OR IF FOLLOW UP WITH PCP CANNOT BE OBTAINED. PATIENT FEELS COMFORTABLE GOING HOME AT THIS TIME. ALL QUESTIONS ADDRESSED AT TIME OF DISCHARGE. Time of 1ST Reevaluation: 10:00 Reevaluation 1ST: Improved Patient Education/Counseling: Diagnosis, Treatment, Need For Follow Up Family Education/Counseling: Diagnosis, Treatment, Need For Follow Up Medical Screening: No EMC Exist At This Time Departure 1 Departure Time of Disposition: 10:00 Impression: Primary Impression: Acute exacerbation of chronic low back pain Additional Impression: Pain management Disposition: HOME / SELF CARE / HOMELESS Condition: Stable Additional Instructions: FOLLOW-UP WITH PCP IN 1 TO 2 DAYS. TAKE MEDICATIONS PRESCRIBED. RETURN TO ED FOR ANY NEW OR WORSENING SYMPTOMS. e-Prescriptions Tramadol Hcl (Tramadol Hcl) 50 Mg Tab 50 MG PO BID, #20 TAB Prov: LORENA LEYVA 10/15/24 Prednisone (Prednisone) 20 Mg Tab 40 MG PO DAILY, #20 TAB Prov: LORENA LEYVA 10/15/24 Discharged With: Self, Spouse Critical Care Note Critical Care Time?: No Stability Stability form required: No I personally scribed for LORENA LEYVA ([email or web address]) on 10/15/24 at 09:09. Electronically submitted by Enrico Plata ([email or web address]). I personally scribed for LORENA LEYVA ([email or web address]) on 10/15/24 at 09:31. Electronically submitted by Enrico Plata ([email or web address]). LORENA LEYVA Oct 15, 2024 09:09
[2024-10-15] MEDS ORDERED: KETOROLAC TROMETH 30 MG/ML 1ML VIAL IV ONE (09:15)
[2024-10-15] MEDS: HYDROcodone-ACET 5/325MG TAB PO ONE (09:16)
[2024-10-15] MEDS: methylPREDNISolone SOD SUCC 125 MG/2 ML VL IV ONE (09:21)
== END 2024-10-15 10:01 | disposition home or self-care (01) ==
LOC: ER 08:39 → EDBD 08:39 → ER 10:00
DX: G89.29 Other chronic pain (principal); M54.50 Low back pain, unspecified; I10 Essential (primary) hypertension; Z79.52 Long term (current) use of systemic steroids; Z88.8 Allergy status to other drugs, medicaments and biological substances; Z79.899 Other long term (current) drug therapy

== ENCOUNTER 2024-11-28 11:25 | Emergency (ER) | payer MEDICARE, OTHER ==
[~2024-11-28] VITALS: Ht 160 cm; Wt 96.0 kg
[2024-11-28 12:17] VITALS: BP 148/88; PULSE 102; RESP 17; TEMP 98.6; O2SAT 97
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
[2024-11-28] MEDS ORDERED: LIDO5DIS21 TOP (13:29)
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
== END 2024-11-28 13:50 | disposition home or self-care (01) ==
LOC: EDBD 11:25 → ER 11:31
DX: M25.512 Pain in left shoulder (principal); I10 Essential (primary) hypertension; M19.90 Unspecified osteoarthritis, unspecified site; Z79.52 Long term (current) use of systemic steroids; Z88.8 Allergy status to other drugs, medicaments and biological substances; Z91.041 Radiographic dye allergy status; V43.52XA Car driver injured in collision with other type car in traffic accident, initial encounter; Y92.410 Unspecified street and highway as the place of occurrence of the external cause; Y93.89 Activity, other specified; Y99.8 Other external cause status
CPT/HCPCS: 71045; 73030

== ENCOUNTER 2025-03-09 08:45 | Outpatient (CLI) | payer MEDICARE, OTHER ==
[~2025-03-09 08:45] MED LIST changes: +LIDO5DIS21 TOP
[2025-03-09 08:58] VITALS: BP 163/94; PULSE 99; RESP 18; O2SAT 96
[2025-03-09] MEDS ORDERED: IOHEXOL 350 MG/ML 100ML IJ ONE (09:03)
[2025-03-09] MEDS: methylPREDNISolone SOD SUCC 125 MG/2 ML VL IV ONE (09:04)
[2025-03-09] MEDS: diphenhdrAMINE HCL 50 MG/1 ML VL IV ONE (09:05)
[2025-03-09] MEDS: diphenhdrAMINE HCL 50 MG/1 ML VL ONE (09:07)
[2025-03-09] MEDS: methylPREDNISolone SOD SUCC 125 MG/2 ML VL ONE (09:07)
[2025-03-09 10:00] VITALS: BP 160/91; PULSE 96; RESP 18; O2SAT 96
--- NOTE | 2025-03-09 10:56 | DVH ---
CT CT AB PEL WITH IV CON ONLY INDICATION: ABD PAIN EXAM DATE: 03/09/2025 09:03 AM COMPARISON: None RADIATION DOSE: CTDIvol: 22.27 mGy, DLP: 979.46 mGy*cm PROCEDURE: Helical CT images were obtained of the abdomen and pelvis with IV contrast Sagittal and co bea reconstructions are provided. ORAL CONTRAST: None. ADDITIONAL IMAGES / REFORMATS: None All CT s cans at this medical facility are performed using dose modulation techniques as appropriate to a perf ormed exam including the following: Automated exposure control was utilized; adjustment of the MA and /or KV according to patient size; and use of iterative reconstruction technique. FINDINGS: LUNG BASE: Bibasilar atelectasis is noted. LIVER: 3.7 cm right hepatic cystic lesion. GALLBLADDER AND BILIARY TREE: No calcified gallstones. Normal caliber wall. No intra- or extrahepatic biliary ductal dilation. PANCREAS: Normal. SPLEEN: Normal. BOWEL: Moderate colonic diverticulosis. Normal appearing appendix. ADRENALS: Normal. KIDNEYS AND URETER: 3.4cm left renal cystic lesion. BLADDER: Normal. REPRODUCTIVE ORGANS: 4.0 cm calcified uterine fibroid. LYMPH NODES:No lymphadenopathy. PERITONEUM: No ascites or free air. No other fluid collection. VESSELS: Scattered atherosclerotic calcifications are noted. RETROPERITONEUM: Normal. ABDOMINAL WALL: Normal. BONES: Scattered osseous degenerative changes are noted. IMPRESSION: No acute intraabdominal abnormality. 4.0 cm calcified uterine fibroid. Moderate colonic diverticulosis.
== END 2025-03-09 17:00 | disposition home or self-care (01) ==
LOC: Rad HDHVI 08:45
PROVIDERS: ATTEND Internal Medicine Cardiovascular Disease
DX: K76.9 Liver disease, unspecified (principal); R16.0 Hepatomegaly, not elsewhere classified; I10 Essential (primary) hypertension; D25.9 Leiomyoma of uterus, unspecified; K57.30 Diverticulosis of large intestine without perforation or abscess without bleeding; E78.5 Hyperlipidemia, unspecified; E11.9 Type 2 diabetes mellitus without complications; M06.9 Rheumatoid arthritis, unspecified; E03.9 Hypothyroidism, unspecified; G47.33 Obstructive sleep apnea (adult) (pediatric); Z98.890 Other specified postprocedural states; Z91.041 Radiographic dye allergy status; Z87.891 Personal history of nicotine dependence; Z79.52 Long term (current) use of systemic steroids; Z79.899 Other long term (current) drug therapy; Z98.51 Tubal ligation status
CPT/HCPCS: 74177; 96374; 96375; G0463; J1200; J2919; Q9967